=== PATIENT | female | born 1990 | race Caucasian/White ===

== ENCOUNTER 2017-05-04 19:41 | Emergency (ER) | payer BC ==
[~2017-05-04] VITALS: Ht 180.3 cm; Wt 93.0 kg
[2017-05-04] MEDS ORDERED: MODAFINIL100 MG PO (19:58)
[2017-05-04] MEDS ORDERED: DOXYCYCLINE HY100 MG PO (20:54)
== END 2017-05-04 21:14 | disposition home or self-care (01) ==
LOC: ED 19:41
DX: S61.452A Open bite of left hand, initial encounter (principal); G47.419 Narcolepsy without cataplexy; Z79.899 Other long term (current) drug therapy; Z88.1 Allergy status to other antibiotic agents; W54.0XXA Bitten by dog, initial encounter
CPT/HCPCS: 90471; 90715; 99283